=== PATIENT | female | born 1960 | race Caucasian/White ===

== ENCOUNTER → 2024-09-09 10:11 | Outpatient (REF) | payer MEDICARE, SELFPAY | LOC: RAD 10:11 | PROVIDERS: ATTENDING PHYSICIAN Nurse Practitioner Adult Health | DX: R10.11 Right upper quadrant pain (principal); M25.551 Pain in right hip; M54.16 Radiculopathy, lumbar region | CPT/HCPCS: 72110; 73502; 76700 ==